=== PATIENT | male | born 1960 | race African-American/Black ===

== ENCOUNTER 2018-03-30 08:32 | Inpatient (IN) | payer OTHER ==
[~2018-03-30] VITALS: Ht 175.3 cm; Wt 126.0 kg
[~2018-03-30 08:32] MED LIST: LISINOPRIL10 MG PO
[2018-05-01] VITALS (11 sets, daily range): BP systolic 119–158; BP diastolic 58–95; PULSE 38–77; TEMP 97.5–98.8
[2018-05-01] MEDS ORDERED: ASPIRIN E.C. 8181 MG PO (03:04)
[2018-05-01] MEDS ORDERED: TYLENOL 500MG500 MG PO (03:05)
[2018-05-01] MEDS ORDERED: FOLIC ACID 11 MG/TA1 PO (03:06)
[2018-05-01] MEDS ORDERED: VITAMIN D32000 I1 PO (03:06)
[2018-05-01] MEDS ORDERED: PRINZIDE 25 MG-1 TAB PO (03:07)
[2018-05-01] MEDS ORDERED: PRINIVIL20 MG PO (03:07)
[2018-05-01] MEDS ORDERED: ROBAXIN 50500 MG/TAB PO (03:08)
[2018-05-01] MEDS ORDERED: NAPROSYN500 MG PO (03:08)
[2018-05-01] MEDS ORDERED: AMBIEN 10MG10 MG PO (03:09)
[2018-05-02] VITALS: BP 157/70; PULSE 70; TEMP 98.6
[2018-05-02 03:31] VITALS: BP 106/46; PULSE 59; TEMP 98.6
[2018-05-02 07:30] LABS: HEMOGLOBIN 10.6 g/dl (13.5-18.0)
[2018-05-02 07:35] LABS: HEMATOCRIT 32.8 % (42.0-52.0)
[2018-05-02 08:21] VITALS: BP 163/62; PULSE 74; TEMP 99
[2018-05-02 11:40] VITALS: BP 175/55; PULSE 71; TEMP 99.3
[2018-05-02 16:16] VITALS: BP 158/66; PULSE 71; TEMP 99.6
[2018-05-02 21:08] VITALS: BP 120/65; PULSE 78; TEMP 98.1
[2018-05-03 00:04] VITALS: BP 151/55; PULSE 66; TEMP 97.9
[2018-05-03 04:45] VITALS: BP 137/58; PULSE 70; TEMP 98
[2018-05-03 05:58] LABS: HEMATOCRIT 31.4 % (42.0-52.0); HEMOGLOBIN 10.1 g/dl (13.5-18.0)
[2018-05-03] MEDS ORDERED: ASPI325T6 PO (06:58)
[2018-05-03] MEDS ORDERED: NORCO 325 MG-7.1 TAB PO (06:59)
[2018-05-03] MEDS ORDERED: ROXICODONE 55 MG/TAB PO (06:59)
[2018-05-03] MEDS ORDERED: COLACE 100100 MG/CAP PO (07:00)
[2018-05-03 08:36] VITALS: BP 152/70; PULSE 69; TEMP 98.2
[2018-05-03 11:34] VITALS: BP 137/60; PULSE 65; TEMP 99.4
== END 2018-05-03 13:54 | disposition home or self-care (01) | DRG 470 ==
LOC: JCC 05-01 05:07
PROVIDERS: Orthopaedic Surgery
PROC: 0SRD0J9 Replacement of Left Knee Joint with Synthetic Substitute, Cemented, Open Approach (ICD-10-PCS; principal; 2018-05-01 07:30)
DX: M17.12 Unilateral primary osteoarthritis, left knee (principal); Z68.41 Body mass index [BMI] 40.0-44.9, adult; I10 Essential (primary) hypertension; Z85.46 Personal history of malignant neoplasm of prostate; Z87.891 Personal history of nicotine dependence; E66.01 Morbid (severe) obesity due to excess calories; F43.10 Post-traumatic stress disorder, unspecified; E78.2 Mixed hyperlipidemia
CPT/HCPCS: A4314; C1713; C1776; J0690; J2250; J2270; J2704; J3010; J7030; J7120

== ENCOUNTER → 2018-04-20 | Outpatient (CLI) | payer OTHER | LOC: COL.LAB 10:52 | DX: Z01.812 Encounter for preprocedural laboratory examination (principal) ==

== ENCOUNTER 2021-04-27 11:44 | Day surgery (SDC) | payer OTHER ==
[~2021-04-27] VITALS: Ht 175.3 cm; Wt 116.6 kg
[~2021-04-27 11:44] MED LIST changes: +AMBIEN 10MG10 MG PO; +ASPI325T6 PO; +ASPIRIN E.C. 8181 MG PO; +COLACE 100100 MG/CAP PO; +FOLIC ACID 11 MG/TA1 PO; +MASON NATURAL2000 IU PO; +NAPROSYN500 MG PO; +NORCO 325 MG-7.1 TAB PO; +PRINIVIL20 MG PO; +PRINZIDE 25 MG-1 TAB PO; +ROBAXIN 50500 MG/TAB PO; +ROXICODONE 55 MG/TAB PO; +TYLENOL 500MG500 MG PO
[2021-04-27 12:14] VITALS: BP 184/91; PULSE 59; TEMP 97.2
[2021-04-27] MEDS ORDERED: PRINZIDE 12.5 M1 TA1 PO (12:22)
[2021-04-27] MEDS ORDERED: GLUCOPHAGE500 MG/TAB PO (12:23)
[2021-04-27] MEDS ORDERED: FLOMAX 0.40.4 MG/CAP (12:24)
[2021-04-27] MEDS ORDERED: VIAGRA100 M1 PO (12:25)
[2021-04-27] MEDS ORDERED: PROTONIX20 MG PO (12:25)
[2021-04-27] MEDS ORDERED: LIDO35.4 TP (12:27)
[2021-04-27] MEDS ORDERED: CRESTOR40 MG PO (12:28)
[2021-04-27] MEDS ORDERED: ASPIRIN 81M81 MG/TA2 PO (12:28)
--- NOTE | 2021-04-27 12:57 | NUR ---
The patient was admitted with a zamora catheter in place which is secured to his right leg and appears to be draining, yellow clear urine without difficulty.
[2021-04-27 15:45] VITALS: BP 182/79; PULSE 65; TEMP 96.9
[2021-04-27 16:00] VITALS: BP 168/76; PULSE 71
[2021-04-27 16:15] VITALS: BP 174/83; PULSE 67
--- NOTE | 2021-04-27 16:34 | NUR ---
Patient tolerated ice water and pudding well with no complaint of nausea. Pain is under control and tolerable per patient. Discharge criteria met. Went through discharge instructions with patient, questions answered. Patient got dressed independently. IV removed with no complications.
--- NOTE | 2021-04-27 16:35 | NUR ---
Dr. Samuel notified that patient is unable to empty bladder. Patient attempted to void in PACU but only went a 10ml. Patient went to restroom in PACU but only able to dripple urine. Bladder Scanned for 395ml. Orders recieved.
[2021-04-27 16:40] VITALS: BP 182/79; PULSE 63; TEMP 97.4
--- NOTE | 2021-04-27 17:45 | NUR ---
1545- Patient returned to ward 6 via cart. Report recieved from JENARO Rodriguez. High BP is consistent with preop BP, pt reports this is basline BP at home. 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 Pt up to bathroom, only able to void "a few dribbles" per pt. Crackers, peanut butter and water provided. 1600- Pt tolerating food and drink well. Pt complains on discomfort related to feeling of full bladder. 1615- Pt reports increased discomfort related to full bladder. Request to have catheter put in and be discharged home. Bladder scan shows 399ml. 1620- Patient's condition and request reported to Dr. Samuel. Orders given by phone for IV pain medication, urethral lido and catheter placement. 1715- Urethral lidocaine applied, IV pain medication administered, 16F Coude catheter placed using sterile technique. 10ml sterile water injected into balloon to hold in place. Leg bag connected and secured to pt leg. 450ml drained from patient during cath placement. Large bag provided for over night with alcohol pads, grad cylinder and extra stat lock. Offered assistance and allowed pt to dress. 1730- Reviewed discharge instructions and education material with pt and . Both verballized understanding. 1745- Transfered pt to personal vehicle via wheel chair to be driven home by .
== END 2021-04-27 17:45 | disposition home or self-care (01) ==
LOC: SDCO 11:44
DX: C61 Malignant neoplasm of prostate (principal); R33.9 Retention of urine, unspecified; R31.0 Gross hematuria; I10 Essential (primary) hypertension; G47.33 Obstructive sleep apnea (adult) (pediatric); K21.9 Gastro-esophageal reflux disease without esophagitis; M19.90 Unspecified osteoarthritis, unspecified site; E11.9 Type 2 diabetes mellitus without complications; F32.A Depression, unspecified; Z79.82 Long term (current) use of aspirin; Z79.899 Other long term (current) drug therapy; Z79.84 Long term (current) use of oral hypoglycemic drugs; Z99.89 Dependence on other enabling machines and devices
CPT/HCPCS: A4314; J0360; J0690; J1100; J2270; J2405; J2704; J3010; J7120

== ENCOUNTER 2022-05-31 13:04 | Inpatient (IN) | payer OTHER ==
[~2022-05-31] VITALS: Ht 175.3 cm; Wt 84.1 kg
[~2022-05-31 13:04] MED LIST changes: +ASPIRIN 81M81 MG/TA2 PO; +CRESTOR40 MG PO; +ELIQUIS 5MG PO; +FLOMAX 0.40.4 MG/CAP; +GAS RELIEF 8080 MG PO; +GLUCOPHAGE500 MG/TAB PO; +LIDO35.4 TP; +NEUPOGEN300 MCG/0. IJ; +NITROSTAT0.3 MG SL; +PRINZIDE 12.5 M1 TA1 PO; +PROTONIX20 MG PO; +VIAGRA100 M1 PO; +ZEPZELCA4 MG; +ZYLOPRIM 300MG300 MG PO
[2022-05-31 16:37] LABS: MEAN CELL VOLUME 95 fl (80.0-100.0); MEAN CORPUSCULAR HGB CONC 31 g/dl (33.0-37.0); PLATELET COUNT 341 K/mm3 (130-400); RED BLOOD COUNT 2.19 M/mm3 (4.20-5.60)
[2022-05-31 16:39] LABS: MEAN CORPUSCULAR HEMOGLOBIN 29 pg (27-31)
[2022-05-31 16:40] LABS: HEMATOCRIT 20.9 % (42.0-52.0); HEMOGLOBIN 6.4 g/dl (13.5-18.0)
[2022-05-31 16:54] LABS: BAND 2 % (0-10); LYMPHOCYTE 2 % (20.0-51.0); NEUTROPHILS 93 % (42.0-75.2); PLATELET ESTIMATE NORMAL (NORMAL)
[2022-05-31 16:55] LABS: ANISOCYTOSIS 2+; HYPOCHROMIA 3+
[2022-05-31 16:56] LABS: ALBUMIN 2.5 gm/dL (3.4-4.8); BILIRUBIN,TOTAL 0.2 mg/dL (0.2-1.2); CALCIUM 9.2 mg/dL (8.4-10.2); CREATININE, serum 2.74 mg/dL (0.72-1.25); POTASSIUM 4.7 mmol/L (3.5-4.5); TOTAL PROTEIN 8.2 gm/dL (6.2-8.1)
[2022-05-31 19:43] VITALS: BP 114/64; PULSE 106; TEMP 98.1
[2022-05-31] MEDS ORDERED: LORAINT PO ×2 (20:13→22:23)
[2022-05-31] MEDS ORDERED: ROXANOL 20MG20 MG/ML PO ×2 (20:15→20:18)
[2022-05-31] MEDS ORDERED: PROTONIX 40MG T40 MG PO (20:16)
[2022-05-31 21:00] VITALS: PULSE 106; TEMP 98.1
--- NOTE | 2022-05-31 22:53 | NUR ---
PATIENT CAME UP TO THE FLOOR FROM ED. ADMISSION ASSESSMENT DONE AT THIS TIME. PATIENT GIVEN PRN MORPHINE AND ATIVAN. AT BEDSIDE AND WILL BE STAYING THE NIGHT
[2022-05-31 23:43] VITALS: BP 123/62; PULSE 82; TEMP 98
[2022-06-01] VITALS (17 sets, daily range): BP systolic 105–128; BP diastolic 59–78; PULSE 49–77; TEMP 97.5–98.4
[2022-06-01 05:12] LABS: BASO # 0.1 K/mm3 (0.0-0.2); BASO % 0.4 % (0.0-2.0); EOS % 0.1 % (0.0-4.0); GRAN # 16.8 K/mm3 (1.4-6.5); LYMPH # 0.7 K/mm3 (1.2-3.4); LYMPH % 3.9 % (20.0-51.0); MEAN CELL VOLUME 95 fl (80.0-100.0); MEAN CORPUSCULAR HGB CONC 31 g/dl (33.0-37.0); MEAN PLATELET VOLUME 9.4 fl (7.4-10.4); MONO # 0.9 K/mm3 (0.1-0.6); PLATELET COUNT 344 K/mm3 (130-400); REDCELL DISTRIBUTION WIDTH-CV 18.8 % (11.5-14.5)
--- NOTE | 2022-06-01 05:13 | NUR ---
DRESSING TO ABDOMEN CHANGED X1 AND DRESSING TO LEFT NEPHROSTOMY TUBE CHANGED X1. PATIENT RECIEVED SCHEDULED DOSE OF MORPHINE X3. PER MARCIE PA HGB TO BE REDRAWN THIS MORNING AND PALLIATIVE CARE CONSULT PRIOR TO BLOOD BEING ADMINISTERED IF NEEDED. PATIENT HAD NO FURTHER QUESTIONS OR CONCERNS AT THIS TIME.
[2022-06-01 05:19] LABS: HEMATOCRIT 19.9 % (42.0-52.0); HEMOGLOBIN 6.1 g/dl (13.5-18.0); MEAN CORPUSCULAR HEMOGLOBIN 29 pg (27-31)
[2022-06-01 05:29] LABS: ALBUMIN 2.4 gm/dL (3.4-4.8); BILIRUBIN,TOTAL 0.3 mg/dL (0.2-1.2); CALCIUM 9.3 mg/dL (8.4-10.2); CREATININE, serum 2.9 mg/dL (0.72-1.25); POTASSIUM 4.7 mmol/L (3.5-4.5); TOTAL PROTEIN 7.9 gm/dL (6.2-8.1)
--- NOTE | 2022-06-01 13:40 | NUR ---
MIRACLE and RN ANA MARIA Calhoun meet with patient post rounding to talk about goals of care. Patients Milton ([phone]) and her twin sister Roseanne are at bedside. Patient is already established with [facility]. They have a hospital bed, commode and other supplies at home needed for his care. [facility] Patients [facility] is his . Phone call made to Magen at [facility]. States that the patients hospice was revoked when he came into the hospital but can restart hospice once discharged. Discharge plan: Home with [facility]
--- NOTE | 2022-06-01 13:59 | NUR ---
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 Dx of Metastatic Prostate CA with Peritoneal Cutaneous Fistula. Pt was admitted for antibiotic tx. Pt had stopped Chemotherapy. Barbara RAUSCH, myself, -Milton and [id number] Roseanne were present. Pt is alert and oriented. When asked what his understanding was of his illness he responded that it was not treatable. When asked about fears, worries or concerns pt stated he did not have any at this time. He did state that his jadon and his give him strength. When I asked the pt what would it look like when he was done receiving care he stated "I don't know because I'm not there yet." Pt stated clearly that while in the hospital he wants to be a full code. Encouraged pt and family to call if they needed anything else while he was here. Pt receiving a unit of blood during the discussion. Pt also stated that he felt comfortable and his pain was well controlled.
--- NOTE | 2022-06-01 16:26 | NUR ---
PATIENT IS AXOX4. PAIN IS MANAGED WITH ROXANOL 5MG Q4 HOURS. NAPPING THROUGHOUT THE DAY. RECEIVING 1 UNIT OF PRBC, WILL CHECK HH. BRITANYS. AGUILAR OLSON'D PER DOCTORS ORDER. PATIENT AND FAMILY ARE STILL WANTING TO STICK WITH A FULL CODE, PER CASE MANAGEMENT. APPLIED AN OSTOMY BAG TO THE FISTULA SITE TO SEE IF IT WILL HELP WITH THE DRAINAGE, RATHER THAN USING ABD PADS. PATIENT AND FAMILY BOTH KNOW HOW TO CHANGE THE DRESSINGS AND EMPTY THE BAGS. WILL CONTINUE TO MONITOR.
[2022-06-01 18:13] LABS: HEMATOCRIT 23.1 % (42.0-52.0); HEMOGLOBIN 7.3 g/dl (13.5-18.0)
[2022-06-02] VITALS (13 sets, daily range): BP systolic 108–121; BP diastolic 65–77; PULSE 4–73; TEMP 97.4–97.8
[2022-06-02 07:35] LABS: BASO # 0.1 K/mm3 (0.0-0.2); BASO % 0.4 % (0.0-2.0); EOS % 0.1 % (0.0-4.0); GRAN % 89.4 % (42.2-75.2); LYMPH # 0.7 K/mm3 (1.2-3.4); LYMPH % 3.6 % (20.0-51.0); MEAN CELL VOLUME 94 fl (80.0-100.0); MEAN CORPUSCULAR HGB CONC 32 g/dl (33.0-37.0); MEAN PLATELET VOLUME 9.8 fl (7.4-10.4); MONO # 1.1 K/mm3 (0.1-0.6); MONO % 5.9 % (1.7-9.3); PLATELET COUNT 300 K/mm3 (130-400); RED BLOOD COUNT 2.44 M/mm3 (4.20-5.60); REDCELL DISTRIBUTION WIDTH-CV 18.6 % (11.5-14.5)
[2022-06-02 07:42] LABS: ALBUMIN 2.4 gm/dL (3.4-4.8); BILIRUBIN,TOTAL 0.3 mg/dL (0.2-1.2); CALCIUM 9.1 mg/dL (8.4-10.2); CREATININE, serum 3.89 mg/dL (0.72-1.25); HEMATOCRIT 22.9 % (42.0-52.0); HEMOGLOBIN 7.3 g/dl (13.5-18.0); MEAN CORPUSCULAR HEMOGLOBIN 30 pg (27-31); POTASSIUM 4.4 mmol/L (3.5-4.5); TOTAL PROTEIN 7.9 gm/dL (6.2-8.1)
--- NOTE | 2022-06-02 08:38 | NUR ---
PATIENT AWAKE AND ALERT, RESTING IN BED. PATIETNS AT BEDSIDE. PATINET COMPLAINING OF 8/10 PAIN. ORAL ROXANOL GIVEN SCHEDULED. L NEPHROSOTOMY TUBE FLUSHED WITH NO ISSUE. R NEPHROSOTOMY TUBE UNABLE TO FLUSH, PULL BACK BROUGHT CLOUDY YELLOW DRAINAGE. SAMPLE TOOKEN PER REQUEST.
--- NOTE | 2022-06-02 10:53 | NUR ---
DRESSING TO ABD, ILEOSOTMY DRESSING AND BAG CHANGED.
[2022-06-02 11:33] LABS: CREATININE, serum 3.96 mg/dL (0.72-1.25); POTASSIUM 4.3 mmol/L (3.5-4.5)
--- NOTE | 2022-06-02 18:30 | NUR ---
PATIENT AWAKE AND ALERT, RESTING IN BED. AT BEDSIDE. CALL LIGHT ITHIN REACH. PATIENT VOICES NO NEEDS OR COMPLAINTS AT THIS TIME.
[2022-06-03] VITALS (23 sets, daily range): BP systolic 99–123; BP diastolic 46–74; PULSE 72–87; TEMP 97.4–97.6
[2022-06-03 06:31] LABS: BASO # 0.1 K/mm3 (0.0-0.2); BASO % 0.5 % (0.0-2.0); EOS % 0.2 % (0.0-4.0); GRAN # 14.6 K/mm3 (1.4-6.5); LYMPH # 0.9 K/mm3 (1.2-3.4); LYMPH % 5.5 % (20.0-51.0); MEAN CELL VOLUME 97 fl (80.0-100.0); MEAN CORPUSCULAR HGB CONC 34 g/dl (33.0-37.0); MEAN PLATELET VOLUME 9.1 fl (7.4-10.4); MONO # 1.1 K/mm3 (0.1-0.6); MONO % 6.4 % (1.7-9.3); PLATELET COUNT 278 K/mm3 (130-400); RED BLOOD COUNT 2.35 M/mm3 (4.20-5.60); REDCELL DISTRIBUTION WIDTH-CV 18.5 % (11.5-14.5)
[2022-06-03 06:32] LABS: HEMATOCRIT 22.9 % (42.0-52.0); HEMOGLOBIN 7.8 g/dl (13.5-18.0); MEAN CORPUSCULAR HEMOGLOBIN 33 pg (27-31)
--- NOTE | 2022-06-03 06:45 | NUR ---
awake resting in bed, bedside shift report received from JENARO Rodriguez
[2022-06-03 06:50] LABS: ALBUMIN 2.5 gm/dL (3.4-4.8); BILIRUBIN,TOTAL 0.3 mg/dL (0.2-1.2); CALCIUM 9.4 mg/dL (8.4-10.2); CREATININE, serum 4.01 mg/dL (0.72-1.25); POTASSIUM 4.4 mmol/L (3.5-4.5); TOTAL PROTEIN 8.2 gm/dL (6.2-8.1)
--- NOTE | 2022-06-03 08:40 | NUR ---
resting in bed, am daniels jamar with a sip of water, consent signed for nephrostomy tube replacement, full assessment completed, see interventions for further info, colostomy intact with small amount semi formed brown stool in colostomy bag, abdominal dressing to midline with fistula with mod amount drainage, removed and area cleaned with normal saline and new dressing placed
--- NOTE | 2022-06-03 09:30 | NUR ---
to radiology per WC for nephrostomy tube replacement
--- NOTE | 2022-06-03 09:46 | NUR ---
PT HAS NSR WITH OCCASSIONAL BIGEMINY
--- NOTE | 2022-06-03 10:45 | NUR ---
THROUGH THE WHOLE PROCEDURE THE PT WAS IN BIGEMINY
--- NOTE | 2022-06-03 11:05 | NUR ---
returned from radiology per WC, resting in bed, dressing to left back CD&I and nephrostomy tube with clear yellow urine in tubing and in drainage bag
--- NOTE | 2022-06-03 11:45 | NUR ---
continues to rest in bed, dressing to abdomen CD&I, wafer had scant amount drainage from fistula on the edge this am when dressing changed and dry drinage on right side of wafer, believes the wafer needs to be changed, will continue to monitor and change this later as dressing is currently dry and intact
[2022-06-03] MEDS ORDERED: MYLICON 8080 MG/TAB. PO (12:50)
--- NOTE | 2022-06-03 12:50 | NUR ---
Dr Landis in to see patient, will plan discharge later
--- NOTE | 2022-06-03 13:55 | NUR ---
has him dressed and ready for discharge, assisted into bed and shirt removed in order to deaccess portacath, good blood return from port, then flushed with saline and heparin, port deaccessed and he tolerated well, discharge instructions given to patient and his , verbalizes understanding,
--- NOTE | 2022-06-03 14:05 | NUR ---
discharged per WC
--- NOTE | 2022-06-03 14:10 | NUR ---
The clinical team is ready to discharge the patient today. MIRACLE met with the patient and his , Milton, to review discharge plan. The patient and his confirm the plan to return home and they would like to resume hospice services through [facility]. MIRACLE notified Magen at [facility] of this. Magen confirms they can resume services. The patient is to discharge back home with his today, 06/03, and resume hospice services through [facility]. No additional needs at this time.
== END 2022-06-03 14:05 | disposition hospice, home (50) | DRG 699 ==
LOC: COL.ER 13:04 → MEDICAL 16:45
PROVIDERS: Emergency Medicine; ADMIT Hospitalist
PROC: 30233N1 Transfusion of Nonautologous Red Blood Cells into Peripheral Vein, Percutaneous Approach (ICD-10-PCS; 2022-05-31)
PROC: BT111ZZ Fluoroscopy of Right Kidney using Low Osmolar Contrast (ICD-10-PCS; principal; 2022-06-02)
PROC: 0T25X0Z Change Drainage Device in Kidney, External Approach (ICD-10-PCS; 2022-06-02)
DX: T83.092A Other mechanical complication of nephrostomy catheter, initial encounter (principal); C78.6 Secondary malignant neoplasm of retroperitoneum and peritoneum; K63.2 Fistula of intestine; N17.9 Acute kidney failure, unspecified; R65.10 Systemic inflammatory response syndrome (SIRS) of non-infectious origin without acute organ dysfunction; C61 Malignant neoplasm of prostate; D64.9 Anemia, unspecified; N18.30 Chronic kidney disease, stage 3 unspecified; I12.9 Hypertensive chronic kidney disease with stage 1 through stage 4 chronic kidney disease, or unspecified chronic kidney disease; E11.22 Type 2 diabetes mellitus with diabetic chronic kidney disease; K21.9 Gastro-esophageal reflux disease without esophagitis; M10.9 Gout, unspecified; E78.5 Hyperlipidemia, unspecified; Z51.5 Encounter for palliative care; Z79.01 Long term (current) use of anticoagulants; Z93.2 Ileostomy status; Z93.6 Other artificial openings of urinary tract status; Z96.652 Presence of left artificial knee joint; Z92.21 Personal history of antineoplastic chemotherapy
CPT/HCPCS: OP; G0378; J2060; J2250; J2543; J3010; P9016; Q9967